=== PATIENT | male | born 1975 | race African-American/Black ===

== ENCOUNTER 2016-12-05 18:08 | Emergency (ER) | payer OTHER ==
[~2016-12-05] VITALS: Ht 188 cm; Wt 162.7 kg
[~2016-12-05 18:08] MED LIST: TAM75UDCAP PO
[2016-12-05 18:18] VITALS: BP 158/104; RESP 20; O2SAT 97
--- NOTE | 2016-12-05 19:33 | ED.REPORT ---
HPI-URI / Cough / Cold Date of Service Dec 05, 2016 ED Provider: Doc,Ed MD History of Present Illness: 41-year-old male here for right ear drainage times one year. Purulent malodorous drainage coming from his ear canal. He has been seen by ENT who punctured a hole in his eardrum and gave him a topical antibiotic drops to use 1 yr ago. He never did use these antibiotic drops it has not changed since his last eval by ENT. He became dizzy yesterday and this concerned him. Yesterday he also drank approximately 80 ounces and energy drinks and then drink alcohol as well. His dizziness is gradually resolving although he still has a little bit, it is minor. Denies chest pain or shortness of breath or palpitations. Denies MORENO. No fever. No ear pain. Patient also requesting a prescription for his high blood pressure. He has been prescribed something in the past unknown what it is, he would like the meds here today. Is also requesting a prescription for 800 mg ibuprofens for generalized pain. Nursing Notes Stated Complaint: DIZZY,DISORIENTATED,EAR LEAKAGE Chief Complaint: ENT & Mouth Allergies: Coded Allergies: No Known Allergies (Verified , 06/06/15) Scheduled Lisinopril (Lisinopril) 20 Mg Tablet 20 MG PO DAILY Oseltamivir Phosphate (Tamiflu) 75 Mg Capsule 75 MG PO BID Scheduled PRN Ibuprofen (Ibuprofen) 800 Mg Tablet 800 MG PO TID PRN PRN For Pain General Time Seen by MD: 19:32 Chief Complaint Other (ear drainage) Hx Obtained From: Patient Arrived By: Walk-in Onset Occurred: Onset unknown Symptom Duration: Constant Location: : Ear right Severity: Current: No pain currently Severity: Maximum: No pain Context: Immunization Status General: All up to date Similar Sx Previous: Yes Past Medical History Past Medical History Notes: chronic otitis externa, 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 htn Past Medical History Denies Asthma, Denies Diabetes mellitus Past Surgical History Hernia Surgery Smoking History Former Smoker Social History Alcohol Use: Denies alcohol use Drug Use: Denies drug use Ambulatory Status Independent Review of Systems Constitutional: Denies: Fever Ears / Nose / Throat: Reports: Ear drainage right Physical Exam Initial Vital Signs Vital Signs (First) Date Time Temp Pulse Resp B/P Pulse Ox O2 Delivery O2 Flow Rate FiO2 12/05/16 18:18 36.7 64 20 158/104 97 Room Air Initial VS: Reviewed, Vital signs normal Head / Eyes: Atraumatic, Normocephalic, PERRL Neck: Supple, Non-tender, Full range of motion Cardiovascular: Regular rate & rhythm, Heart sounds normal, Intact distal pulses Skin: Warm, Dry, No cyanosis Neurologic: Alert, Oriented, Nonfocal Psychiatric: Mood/affect normal, Behavior normal, Normal thought content ENT: Airway patent, Mucous membranes moist, Pharynx NL, Nose exam NL, No sinus tenderness Right TM obscured by discharge and swelling. Malodorous whitish brown discharge coming from the ear canal. Left TM and canal is within normal limits. Re-Eval/Medical Decision Med Decision/Clinical Course Med Decision/Clinical Course: discussed treatment for blood pressure. He does not know previous medications he was on. We will start lisinopril today as he is requesting medication. Also requesting ibuprofen for general aches and pains will prescribe this request. Follow-up PCP for further refills Discharge & Departure Shift Change Sign-Out Procedures: Results discussed Response to Therapy: Unchanged Impression: Primary Impression: Otitis externa of right ear Otitis externa type: other infective Chronicity: unspecified Qualified Code : H60.391 - Other infective otitis externa, right ear Additional Impression: Hypertension Hypertension type: essential hypertension Qualified Code: I10 - Essential ( primary) hypertension Disposition: Home Discharge Condition All VS Reviewed: Yes Condition: Stable Patient Instructions: Otitis Externa (ED) Additional Instructions: Use antibiotic eardrops as directed. Follow up with ENT, call for appointment tomorrow. Do not stick anything in your ears. Return to ER if your ear pain worsens or if she gets severe dizziness. Start this new blood pressure medication. Common side effect includes cough and swelling of the lips and mouth. Follow up in ER these happen. Otherwise follow-up with your PCP for further prescriptions and monitoring. You may use ibuprofen as needed for general aches and pains. Referrals: [facility] (PCP) Lalo Sharma MD EDSupervising Provider for APC: Randy Ocampo MD copies to: Lalo Sharma MD, Linnea K ARNP Dec 05, 2016 19:33
[2016-12-05] MEDS ORDERED: Ciprofloxacin-Dexamethasone 7.5 mL Otic Susp RIGHT_EAR ONE (20:10)
[2016-12-05] MEDS ORDERED: IBUP800T28 PO (20:23)
[2016-12-05] MEDS ORDERED: LISI-567 PO (20:23)
[2016-12-05 20:52] VITALS: BP 142/99; PULSE 64; RESP 18; O2SAT 98
== END 2016-12-05 20:53 | disposition home or self-care (01) ==
LOC: SED 18:08
DX: H60.391 Other infective otitis externa, right ear (principal); I10 Essential (primary) hypertension; Z87.891 Personal history of nicotine dependence